=== PATIENT | female | born 2005 | race Caucasian/White ===

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

== ENCOUNTER 2024-01-13 10:54 | Emergency (ER) | payer MEDICAID, SELFPAY ==
[2024-01-13 11:08] VITALS: BP 115/80; PULSE 70; RESP 14; TEMP 36.9; O2SAT 98; BMI 26.2
[2024-01-13 11:34] LABS: Basophils % 0.3 %; Eosinophils # 0.3 10^3/uL (0.0-0.8); Eosinophils % 2.1 %; Hematocrit 32.2 % (36-47); Lymphocytes # 2.4 10^3/uL (1.5-6.5); Lymphocytes % 16.7 %; Mean Corpuscular HGB Conc 28.9 g/dL (30-55); Mean Corpuscular Hemoglobin 20.9 pg (27-33); Mean Corpuscular Volume 72.4 fl (85-98); Mean Platelet Volume 10.8 fL (7.4-10.4); Monocytes # 0.9 10^3/uL (0.2-0.9); Monocytes % 6.2 %; Neutrophils # 10.66 10^3/uL (1.8-8.0); Neutrophils % 73.9 %; Nucleated Red Blood Cells % 0.1 %; Platelet Count 328 10^3/cmm (157-399); Red Blood Count 4.45 10^6/uL (3.85-5.65); Red Cell Distribution Width 17.5 % (12.1-15.1)
[2024-01-13 11:48] LABS: HCG, Serum Qual Positive (Negative)
[2024-01-13 11:50] LABS: Alanine Aminotransferase 38 U/L (0-33); Albumin Level 3.7 g/dL (3.5-5.2); Alkaline Phosphatase 192 U/L (35-105); Anion Gap 16.4 (5-19); Aspartate Amino Transferase 22 U/L (0-32); Blood Urea Nitrogen 5 mg/dL (6-20); Calcium 9.6 mg/dL (8.5-10.5); Carbon Dioxide 25 mmol/L (22-29); Chloride 103 mmol/L (98-107); Creatinine Clr Calc Pharmacy 92.1586; Globulin 3.6 g/dL (1.3-4.6); Glomerular Filtration Rate 92.4 mL/min (90-130); Glucose 90 mg/dL (65-115); Osmolality Calculated 287 mOsm/kg (285-295); Potassium 4.4 mmol/L (3.5-5.1); Sodium 140 mmol/L (136-145); Total Bilirubin 0.3 mg/dL (0.15-1.2); Total Protein 7.3 g/dL (6.6-8.7)
[2024-01-13 12:36] VITALS: BP 125/80; PULSE 82; O2SAT 98
[2024-01-13 13:00] VITALS: PULSE 69; O2SAT 96
[2024-01-13 13:03] VITALS: BP 119/85
[2024-01-13 13:20] VITALS: BP 123/78; PULSE 78; O2SAT 96
--- NOTE | 2024-01-13 13:30 | PC.NURSE ---
THIS NURSE NOTICED PT LEAVING ROOM WITH MOTHER AND BABY. THIS NURSE ASKED МАРИЯ CALIX IF THAT PT WAS DISCHARGED. МАРИЯ CALIX, STATED PT WAS NOT DISCHARGED. THIS NURSE APPROACHED PT AND FAMILY AND ASKED WHERE THEY WERE GOING. PT MOTHER STATED WE ARE LEAVING. WE ARE GOING TO [place]. THIS NURSE ASKED PT WHY THEY WERE LEAVING. PT MOTHER STATED WE HAVE NOT EVEN BEEN SEEN BY A DOCTOR. WE ONLY HAD BLOOD DRAWN. WE'VE BEEN HERE FOR 3 HOURS AND HAVE NOT HAD ANYTHING DONE. THIS NURSE ASKED PT IF THERE WAS ANYTHING THEY COULD DO TO MAKE HER STAY. PT AND MOTHER BOTH SAID NO. THIS NURSE EDUCATED PT ON RISKS OF LEAVING PRIOR TO FURTHER TESTING AND EDUCATED ON THE NECESSITY OF STAYING. PT AND MOTHER BOTH VERBALIZED UNDERSTANDING AND DENIED WANTING FURTHER TREATMENT. PT SIGNED AMA FORM. THIS NURSE ASKED PT IF THEY WOULD STAY TO TALK TO THE DOCTOR. PT STATED SHE JUST WANTED TO LEAVE. AMA FORM SIGNED AND PT LEFT. MD NOTIFIED OF SITUATION.
--- NOTE | 2024-01-13 13:32 | PC.NURSE ---
At approx @1300, this nurse informed pt of need for urine sample, placed pt on monitor. pt denied any further needs/concerns at this time.
== END 2024-01-13 13:36 | disposition left against medical advice (07) ==
PROVIDERS: Physician Assistant; Emergency Provider Family Medicine
DX: Z53.21 Procedure and treatment not carried out due to patient leaving prior to being seen by health care provider (principal)
CPT/HCPCS: 36415; 80053; 84703; 85025; 99283

== ENCOUNTER → 2024-04-09 13:27 | Outpatient (BNVA) | payer MEDICAID, SELFPAY | DX: J02.9 Acute pharyngitis, unspecified (principal) | CPT/HCPCS: 87880 ==

== ENCOUNTER → 2024-05-29 15:27 | Outpatient (BNVA) | payer MEDICAID, SELFPAY | PROVIDERS: Visit Provider Nurse Practitioner | DX: J02.9 Acute pharyngitis, unspecified (principal); R50.9 Fever, unspecified | CPT/HCPCS: 87400; 87880 ==

== ENCOUNTER → 2024-12-21 14:39 | Outpatient (BNVA) | payer MEDICAID, SELFPAY | PROVIDERS: Visit Provider Nurse Practitioner | DX: Z20.2 Contact with and (suspected) exposure to infections with a predominantly sexual mode of transmission (principal) | CPT/HCPCS: 81513; 87481; 87491; 87591; 87661 ==

== ENCOUNTER → 2025-03-06 09:46 | Outpatient (BNVA) | payer MEDICAID, SELFPAY | PROVIDERS: Visit Provider Nurse Practitioner | DX: J02.9 Acute pharyngitis, unspecified (principal) | CPT/HCPCS: 87880 ==